=== PATIENT | female | born 1950 | race Two or more races ===

== ENCOUNTER 2025-05-23 08:00 | Day surgery (SDC) | payer OTHER ==
[2025-05-16 15:31] VITALS: BP 123/81
[~2025-05-23] VITALS: Ht 157.5 cm; Wt 68.9 kg
[2025-05-23] MEDS ORDERED: CEFAZOLIN SODIUM 1,000 MG VIAL ONE ×2 (09:01→09:53)
[2025-05-23] MEDS ORDERED: GENTAMICIN SULFATE 40 MG/ML VIAL ONE (09:53)
[2025-05-23] MEDS ORDERED: MACROBID 100 M100 MG PO (10:31)
[2025-05-23] MEDS ORDERED: TRAM1TAB98 PO (10:31)
== END 2025-05-23 14:45 | disposition home or self-care (01) ==
LOC: CIR.AMB 08:00
PROVIDERS: ATTEND Obstetrics & Gynecology Gynecology
DX: N81.11 Cystocele, midline (principal); N81.5 Vaginal enterocele